=== PATIENT | female | born 2005 | race Asian ===

== ENCOUNTER 2024-06-22 19:49 | Emergency (ER) | payer OTHER, SELFPAY ==
[2024-06-22 19:55] VITALS: BP 120/76; PULSE 84; RESP 16; TEMP 36.8; O2SAT 99; BMI 23.7
--- NOTE | 2024-06-22 20:14 | ED.GENADULT ---
HPI - General Adult General Chief complaint: Urogenital Problems, Female Stated complaint: period Time Seen by Provider: 06/22/24 20:03 Source: patient Mode of arrival: ambulatory Limitations: no limitations History of Present Illness HPI narrative: 19-year-old female coming in today complaining of a painful menstrual cramping. Patient has been on her period for 2 days. Normal amount of bleeding. In she states that she has tried 400 mg of ibuprofen it does not help. Patient also has a history of fibromyalgia and she states that her fibromyalgia pain does get worse around her menses. She has not discussed this with her primary care provider. Patient is on oral control. She denies any fevers or chills. No nausea or vomiting. No pain with urination. No vaginal discharge. Patient is not sexually active. Related Data Home Medications ?Medication ?Instructions ?Recorded ?Confirmed levonorgestrel-ethinyl estradiol 1 tab PO DAILY 06/22/24 06/22/24 0.1 mg-20 mcg tablet (Vienva) Allergies Allergy/AdvReac Type Severity Reaction Status Date / Time acetaminophen [From Tylenol] Allergy Mild Cough Verified 06/22/24 19:54 Review of Systems Status of ROS: Reports: 10 or more systems reviewed and unremarkable except as noted in History and below Exam Narrative: Exam Narrative: Well-nourished well-developed patient in no acute distress. Alert and oriented. Answers questions appropriately. Mood and affect are appropriate. Thoughts are goal oriented and rational. No tangential or magical thinking noted. Patient speaks in full sentences without needing to catch her breath. HEENT: Normocephalic atraumatic. Pupils are equally round reactive to light. Extraocular muscles are intact. Conjunctivae are moist without any icterus noted. Moist mucous membranes. Cardiovascular: Heart is regular rate and rhythm S1 and S2 are present without any murmurs. Lungs: Clear to auscultation bilaterally no wheezes rhonchi or rales are appreciated. Patient takes deep breaths without any discomfort. Abdomen: Soft and nontender nondistended with normal bowel sounds. No suprapubic tenderness. Extremities: Bilateral lower extremities are without edema. Skin: Well perfused without any obvious rashes. Const: Vital Signs, click to edit/add: Vital Signs - 24 hr 06/22/24 19:55 Temperature 98.3 F Pulse Rate [Pulse Oximeter] 84 Respiratory Rate 16 Blood Pressure [Ri ght Upper Arm] 120/76 Pulse Oximetry 99 Oxygen Delivery Me thod Room Air Course Vital Signs Vital signs: Initial Vital Signs Temperature 98.3 F 06/22/24 19:55 Temperature Source Temporal Artery Scan 06/22/24 19:55 Pulse Rate 84 06/22/24 19:55 Pulse Rhythm Regular 06/22/24 19:55 Respiratory Rate 16 06/22/24 19:55 Blood Pressure 120/76 06/22/24 19:55 Blood Pressure Mean 90 06/22/24 19:55 Blood Pressure Position Sitting 06/22/24 19:55 Pulse Oximetry 99 06/22/24 19:55 Oxygen Delivery Method Room Air 06/22/24 19:55 Vital Signs Temperature 98.3 F 06/22/24 19:55 Pulse Rate 84 06/22/24 19:55 Respiratory Rate 16 06/22/24 19:55 Blood Pressure 120/76 06/22/24 19:55 Pulse Oximetry 99 06/22/24 19:55 Oxygen Delivery Method Room Air 06/22/24 19:55 Temperature 98.3 F 06/22/24 19:55 Pulse Rate 84 06/22/24 19:55 Respiratory Rate 16 06/22/24 19:55 Blood Pressure 120/76 06/22/24 19:55 Pulse Oximetry 99 06/22/24 19:55 Oxygen Delivery Method Room Air 06/22/24 19:55 Medical Decision Making MDM Narrative Medical decision making narrative: Painful menstrual cramping. When she was appropriate doses of ibuprofen and Tylenol, heat. Discussed changing her control and following up with her primary care provider. Discharge Plan Discharge Clinical Impression: Menstrual cramps, Fibromyalgia Patient Disposition: Home, Self-Care Condition: Stable Additional Instructions: For your cramps he can take ibuprofen up to 800 mg every 6 hours with meals. You can also take Tylenol 1000 mg 3 times per day. You can use a heating pad to the abdomen, do not use for more than 20 minutes at a time do not apply heat directly to the skin. As far as your fibromyalgia, recommend you discuss this with your primary care provider. [facility] does have a fibromyalgia clinic that you can consider attending if needed. Lastly, if your periods continue to be very uncomfortable you can switch your control so that you do not get monthly periods. Prescriptions: No Action levonorgestrel-ethinyl estrad [Vienva] 0.1-20 mg-mcg tablet 1 tab PO DAILY Stand Alone Forms: [employer] Info Instructions
== END 2024-06-22 20:27 | disposition home or self-care (01) ==
LOC: ED 20:26
PROVIDERS: Emergency Provider Family Medicine
DX: N94.6 Dysmenorrhea, unspecified (principal); M79.7 Fibromyalgia
CPT/HCPCS: 99282; 99283